=== PATIENT | female | born 2000 | race Caucasian/White ===

== ENCOUNTER 2021-05-20 23:32 | Emergency (ER) | payer OTHER ==
[2021-05-21] MEDS ORDERED: Lidocaine 2% Viscous Solution 15 ML Cup PO ONE (00:06)
[2021-05-21] MEDS ORDERED: Lidocaine 2% Viscous Solution 15 ML Cup TOP ONE (00:07)
--- NOTE | 2021-05-21 00:08 | EDM.PDOC ---
ED HPI GENERAL MEDICAL PROBLEM - General Chief Complaint: Burn Stated Complaint: BURN Time Seen by Provider: 05/20/21 23:45 Source of Information: Reports: Patient History Limitations: Reports: No Limitations - History of Present Illness INITIAL COMMENTS - FREE TEXT/NARRATIVE: Patient presented to the Ed because of a thermal burn on tn her right wrist/hand. She accidentally touch her Rt hand/wrist on a frying [place] with hot oil. She has ist degree burn on the rt wrist. Right Hand Pain Score (Numeric/FACES): 10 - Related Data Allergies Allergy/AdvReac Type Severity Reaction Status Date / Time Penicillins Allergy Rash Verified 05/20/21 23:44 Home Meds: Home Meds Ibuprofen 800 mg PO TID PRN #30 tablet 05/21/21 [Rx] traMADol [Ultram] 100 mg PO Q8H PRN #15 tab 05/21/21 [Rx] Past Medical History - Past Surgical History HEENT Surgical History: Reports: Tonsillectomy Social & Family History - Family History Family Medical History: No Pertinent Family History - Tobacco Use Tobacco Use Status *Q: Current Every Day Tobacco User Years of Tobacco use: 1 Packs/Tins Daily: 0.5 - Caffeine Use Caffeine Use: Reports: Coffee, Energy Drinks, Soda - Recreational Drug Use Recreational Drug Use: No ED ROS GENERAL - Review of Systems Review Of Systems: See Below Constitutional: Reports: No Symptoms HEENT: Reports: No Symptoms Respiratory: Reports: No Symptoms Cardiovascular: Reports: No Symptoms Endocrine: Reports: No Symptoms GI/Abdominal: Reports: No Symptoms : Reports: No Symptoms Musculoskeletal: Reports: No Symptoms Skin: Reports: Other (ist degree burn rt wrist) Neurological: Reports: No Symptoms ED EXAM, GENERAL - Physical Exam Exam: See Below Exam Limited By: No Limitations General Appearance: Alert, No Apparent Distress Eye Exam: Bilateral Eye: PERRL Ears: Normal External Exam, Normal Canal, Hearing Grossly Normal Nose: Normal Inspection, Normal Mucosa, No Blood Throat/Mouth: Normal Inspection, Normal Lips, Normal Teeth Head: Atraumatic, Normocephalic Neck: Normal Inspection, Supple, Non-Tender, Full Range of Motion Respiratory/Chest: No Respiratory Distress, Lungs Clear, Normal Breath Sounds, No Accessory Muscle Use, Chest Non-Tender Cardiovascular: Normal Peripheral Pulses, Regular Rate, Rhythm, No Edema, No Gallop, No JVD, No Murmur GI/Abdominal: Normal Bowel Sounds, Soft, Non-Tender, No Organomegaly, No Distention Back Exam: Normal Inspection, Full Range of Motion Extremities: Normal Inspection, Normal Range of Motion, Non-Tender Neurological: Alert, Oriented, CN II-XII Intact, Normal Cognition Psychiatric: Normal Affect, Normal Mood Skin Exam: Warm, Other (ist degree burn rt wrist) Course - Vital Signs Text/Narrative:: 15 ml viscous lidocaine applied to right wrist [place] 5 mg, 2 PO x1 Last Recorded V/S: Last Vital Signs Temp 36.4 C 05/20/21 23:35 Pulse 110 H 05/20/21 23:35 Resp 20 05/20/21 23:35 BP 118/86 05/20/21 23:35 Pulse Ox 98 05/20/21 23:35 - Orders/Labs/Meds Meds: Medications Discontinued Medications Generic Name Dose Route Start Last Admin Trade Name Freq PRN Reason Stop Dose Admin Hydrocodone Bitart/Acetaminophen 2 tab 05/21/21 00:40 05/21/21 00:47 Acetaminophen/Hydrocodone 325-5 Mg Tab PO 05/21/21 00:41 2 tab NOW STA Administration Lidocaine HCl 15 ml 05/21/21 00:06 05/21/21 00:11 Lidocaine 2% Viscous Solution 15 Ml Cup PO 05/21/21 00:07 15 ml ONETIME ONE Administration Lidocaine HCl 15 ml 05/21/21 00:07 05/21/21 00:11 Lidocaine 2% Viscous Solution 15 Ml Cup TOP 05/21/21 00:08 15 ml ONETIME ONE Administration Departure - Departure Time of Disposition: 00:45 Disposition: Home, Self-Care 01 Condition: Good Clinical Impression: Thermal injury - Discharge Information Prescriptions: Ibuprofen 800 mg PO TID PRN #30 tablet PRN Reason: Pain traMADol [Ultram] 100 mg PO Q8H PRN #15 tab PRN Reason: Pain Instructions: Burn Care, Adult, [id number] Referrals: PCP,None [Primary Care Provider] - Forms: ED Department Discharge Additional Instructions: Please read discharge instructions on burn Apply over the counter antibiotic ointment to the burn areas twice daily for 1 week Tramadol 100 mg,Ibuprofen 800 mg with tylenol 1000 mg every 8 hours as needed for pain Follow up as needed Sepsis Event Note (ED) - Evaluation Sepsis Screening Result: No Definite Risk - Focused Exam Vital Signs: Vital Signs Temp Pulse Resp BP Pulse Ox 05/20/21 23:35 36.4 C 110 H 20 118/86 98
[2021-05-21] MEDS ORDERED: Acetaminophen/HYDROcodone 325-5 MG Tab PO STA (00:40)
== END 2021-05-21 00:52 | disposition home or self-care (01) ==
LOC: FB.ED 23:32
DX: T23.171A Burn of first degree of right wrist, initial encounter (principal); Z72.0 Tobacco use; Z88.0 Allergy status to penicillin; X10.2XXA Contact with fats and cooking oils, initial encounter
CPT/HCPCS: 99283; A9270

== ENCOUNTER 2022-04-21 16:41 | Emergency (ER) | payer SELFPAY ==
[2022-04-21] MEDS ORDERED: Sodium Chloride 0.9% 10 ML Syringe FLUSH PRN (17:07)
[2022-04-21] MEDS ORDERED: Ondansetron 4 MG/2 ML SDV IVPUSH STA (17:14)
[2022-04-21] MEDS ORDERED: Sodium Chloride 0.9% 1,000 ML IV SCH (17:15)
[2022-04-21 17:38] LABS: ESTIMATED GFR 108 mL/min (>60)
[2022-04-21] MEDS ORDERED: Iopamidol 755 Mg/ML 75 ML Bottle IV ONE (17:43)
[2022-04-21] MEDS ORDERED: Acetaminophen 500 MG Tab PO ONE (18:32)
[2022-04-21] MEDS ORDERED: Ketorolac 30 MG/ML SDV IVPUSH ONE (19:10)
[2022-04-21] MEDS ORDERED: Levofloxacin 750 MG Tab PO STA (19:10)
== END 2022-04-21 19:33 | disposition home or self-care (01) ==
LOC: FB.ED 16:41
DX: N12 Tubulo-interstitial nephritis, not specified as acute or chronic (principal); N39.0 Urinary tract infection, site not specified; F17.210 Nicotine dependence, cigarettes, uncomplicated; Z88.0 Allergy status to penicillin
CPT/HCPCS: 36415; 74177; 80053; 81001; 81025; 82150; 83690; 85025; 87086; 87088; 87186; 96361; 96374; 96375; 99284-25; A9270-GY; J1885; J2405; J3490; J7030; Q9967